=== PATIENT | female | born 1990 | race American Indian/Alaskan Native ===

== ENCOUNTER 2019-02-15 02:56 | Emergency (ER) | payer OTHER ==
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
[2019-02-15 05:05] VITALS: BP 115/66
== END 2019-02-15 04:54 | disposition home or self-care (01) ==
LOC: ED 02:56
DX: M54.5 Low back pain (principal); J45.909 Unspecified asthma, uncomplicated; Z79.899 Other long term (current) drug therapy; V89.2XXA Person injured in unspecified motor-vehicle accident, traffic, initial encounter; Y93.89 Activity, other specified; Y92.89 Other specified places as the place of occurrence of the external cause; Y99.8 Other external cause status
CPT/HCPCS: 72100; 99282